=== PATIENT | male | born 1975 | race Caucasian/White ===

== ENCOUNTER 2016-08-23 05:02 | Emergency (ER) | payer MEDICARE ==
[~2016-08-23] VITALS: Ht 170.2 cm; Wt 76.3 kg
[2016-08-23 05:04] VITALS: BP 137/91
== END 2016-08-23 05:44 | disposition home or self-care (01) ==
LOC: ED 05:39
DX: K04.7 Periapical abscess without sinus (principal)
CPT/HCPCS: 99283

== ENCOUNTER 2017-04-05 04:02 | Emergency (ER) | payer MEDICARE ==
[~2017-04-05] VITALS: Ht 172.7 cm; Wt 61.8 kg
[2017-04-05 04:54] VITALS: BP 131/74
== END 2017-04-05 04:57 | disposition home or self-care (01) ==
LOC: ED 04:40
DX: F41.1 Generalized anxiety disorder (principal); Z72.9 Problem related to lifestyle, unspecified; F12.10 Cannabis abuse, uncomplicated
CPT/HCPCS: 99284

== ENCOUNTER 2017-11-03 07:11 | Emergency (ER) | payer MEDICARE ==
[~2017-11-03] VITALS: Ht 172.7 cm; Wt 71.3 kg
[2017-11-03] MEDS ORDERED: BUSP7.5T3 PO (07:38)
[2017-11-03] MEDS ORDERED: RISP2TAB3 PO (07:39)
[2017-11-03] MEDS ORDERED: HYDR50TA13 PO (07:40)
[2017-11-03] MEDS ORDERED: ELVI1TAB3 PO (07:41)
[2017-11-03] MEDS ORDERED: DIPH1TAB6 PO (07:41)
[2017-11-03] MEDS ORDERED: ASPIRIN 81 MG TABLET CHEW ONE (07:50)
[2017-11-03] MEDS ORDERED: HYDROcodone/APAP 5/325 TABLET ONE (07:51)
[2017-11-03] MEDS ORDERED: ASPIRIN 81 MG TABLET CHEW PO ONE (08:00)
[2017-11-03] MEDS ORDERED: HYDROcodone/APAP 5/325 TABLET PO ONE (08:00)
[2017-11-03 08:02] LABS: BASOPHILS # (AUTO) 0.04 x10^3/uL (0-0.1); BASOPHILS % (AUTO) 1 % (0-1); EOSINOPHILS # (AUTO) 0.41 x10^3/uL (0-0.4); EOSINOPHILS % (AUTO) 5 % (1-7); LYMPHOCYTES # (AUTO) 1.62 x10^3/uL (1-3.4); LYMPHOCYTES % (AUTO) 21 % (22-44); MD NO; MEAN CORPUSCULAR HEMOGLOBIN 33.1 pg (27.5-34.5); MEAN CORPUSCULAR VOLUME 97.3 fL (81-97); MEAN PLATELET VOLUME 7.4 fL (7.4-10.4); MONOCYTES # (AUTO) 0.59 x10^3/uL (0.2-0.8); MONOCYTES % (AUTO) 8 % (2-9); NEUTROPHILS # (AUTO) 4.91 x10^3/uL (1.8-6.8); NEUTROPHILS % (AUTO) 65 % (42-75); PLATELET COUNT 266 x10^3/uL (130-400); RED BLOOD COUNT 4.96 x10^6/uL (4.38-5.82); RED CELL DISTRIBUTION WIDTH 14.1 % (9.4-14.8)
[2017-11-03 08:36] LABS: ALBUMIN 3.3 g/dL (3.4-5.0); ANION GAP 3 mmol/L (5-15); CALCIUM 8.3 mg/dL (8.5-10.1); CHLORIDE 105 mmol/L (98-107)
[2017-11-03 08:41] LABS: ALANINE AMINOTRANSFERASE 74 U/L (12-78); ALKALINE PHOSPHATASE 58 U/L (45-117); BILIRUBIN,TOTAL 0.5 mg/dL (0.2-1.0); CREATININE 0.76 mg/dL (0.7-1.3); TOTAL PROTEIN 7.1 g/dL (6.4-8.2); TROPONIN I < 0.015 ng/mL (0.000-0.045)
[2017-11-03 10:11] VITALS: BP 118/70
== END 2017-11-03 10:13 | disposition home or self-care (01) ==
LOC: ED 08:12
DX: R07.89 Other chest pain (principal); K02.9 Dental caries, unspecified; Z21 Asymptomatic human immunodeficiency virus [HIV] infection status
CPT/HCPCS: 36415; 71045; 80053; 84484; 85025; 93005; 99285